=== PATIENT | female | born 2000 | race African-American/Black ===

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

== ENCOUNTER 2018-02-01 22:19 | Emergency (ER) | payer MEDICAID, OTHER ==
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
[2018-02-02 00:43] VITALS: BP 111/74
--- NOTE | 2018-02-02 08:27 | RAD ---
Indication: RIGHT shoulder pain post fall posterior lateral aspect humeral head region. Comparison: No relevant prior exams available on the [facility] for comparison. Technique: 4 views RIGHT shoulder Report: Normal acromioclavicular and glenohumeral joint alignment. No cortical disruption or suspicious trabecular irregularity to suggest fracture. Unremarkable soft tissue contours. IMPRESSION: Negative radiographic exam of the RIGHT shoulder.
== END 2018-02-02 00:42 | disposition home or self-care (01) ==
LOC: ED 22:19
DX: M25.511 Pain in right shoulder (principal)
CPT/HCPCS: 36415; 84702; 99281

== ENCOUNTER 2018-02-12 12:21 | Emergency (ER) | payer OTHER ==
[2018-02-12 12:48] VITALS: BP 131/79
[2018-02-12] MEDS ORDERED: diPHENhydraMINE PO* 25 MG PO ONE (13:03)
[2018-02-12] MEDS ORDERED: Naproxen TAB* 250 MG PO ONE (13:03)
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
== END 2018-02-12 13:22 | disposition home or self-care (01) ==
LOC: ED 12:21
DX: S00.83XA Contusion of other part of head, initial encounter (principal); S02.5XXA Fracture of tooth (traumatic), initial encounter for closed fracture; Y04.2XXA Assault by strike against or bumped into by another person, initial encounter; Y92.9 Unspecified place or not applicable; E05.90 Thyrotoxicosis, unspecified without thyrotoxic crisis or storm; I10 Essential (primary) hypertension; F17.210 Nicotine dependence, cigarettes, uncomplicated
CPT/HCPCS: 99282; A9270-GY

== ENCOUNTER 2018-03-04 12:31 | Emergency (ER) | payer OTHER ==
[2018-03-04 13:52] VITALS: BP 122/87
--- NOTE | 2018-03-04 14:21 | UC ---
Neck Pain HPI - HPI Summary HPI Summary: 3 WEEKS OF PAINFUL RIGHT NECK MASS THAT IS GETTING PROGRESSIVELY LARGER. SHE HAS A HARD TIME TURNING HER HEAD DUE TO THE PAIN. SHE HAS A SORE THROAT AND PAIN WITH SWALLOWING BUT DENIES ANY FEVER. NO URI SYMPTOMS. NO TRISMUS. NO RECENT WEIGHT LOSS BUT SHE DOES REPORT SOME NIGHT SWEATS OVER THE PAST FEW WEEKS. - History of Current Complaint Chief Complaint: UCRespiratory Stated Complaint: SORE THROAT SWOLLEN GLANDS Time Seen by Provider: 03/04/18 13:47 Hx Obtained From: Patient Hx Last Menstrual Period: current Mechanism Of Injury: No Known Trauma Timing: Constant Onset/Duration: Gradual Onset, Lasting Weeks, Still Present Severity: Moderate Pain Intensity: 8 Pain Scale Used: 0-10 Numeric Location: Discrete At: - RIGHT, Radiates To: - HEAD Aggravating Factors: Movement Alleviating Factors: Nothing Associated Signs & Symptoms: Positive: Swelling. Negative: Fever - Allergies/Home Medications Allergies/Adverse Reactions: Allergies Allergy/AdvReac Type Severity Reaction Status Date / Time No Known Allergies Allergy Verified 03/04/18 13:52 Home Medications: Home Medications QUEtiapine TAB* [Seroquel TAB*] 50 mg PO BEDTIME 03/04/18 [History Confirmed ] PMH/Surg Hx/FS Hx/Imm Hx - Additional Past Medical History Additional PMH: SLEEP DIFFICULTY ON SEROQUEL Endocrine History: Hypothyroidism - NO MEDS Cardiovascular History: Hypertension - NO MEDS Respiratory History: Asthma - Surgical History Surgical History: None Surgery Procedure, Year, and Place: n/a - Family History Known Family History: Positive: None - reviewed & noncontributory, Cardiac Disease, Hypertension, Other - Bipolar d/o, anxiety, ETOH abuse, ectopic pregnancies/miscarriages; Negative: Diabetes Family History: TWIN SISTER HAS LIVER DZ - Social History Alcohol Use: None Substance Use Type: None Substance Use Comment - Amount & Last Used: occassional 1 month Smoking Status (MU): Light Every Day Tobacco Smoker Type: Cigarettes Amount Used/How Often: 1 sigs per day Length of Time of Smoking/Using Tobacco: one year Have You Smoked in the Last Year: Yes - Immunization History Most Recent Influenza Vaccination: dec 2016 Most Recent Pneumonia Vaccination: n/a Review Of Systems Constitutional: Positive: Negative ENT: Positive: Sore Throat, Ear Ache Respiratory: Positive: Negative Cardiovascular: Positive: Negative Gastrointestinal: Positive: Negative Musculoskeletal: Positive: Decreased ROM - NECK, Other: - RIGHT NECK MASS All Other Systems Reviewed And Are Negative: Yes Physical Exam Triage Information Reviewed: Yes Appearance: Well-Appearing, No Pain Distress, Well-Nourished Vital Signs: Initial Vital Signs Temp 98.6 F 03/04/18 13:47 Pulse 91 03/04/18 13:47 Resp 16 03/04/18 13:47 BP 122/87 03/04/18 13:47 Pulse Ox 99 03/04/18 13:47 Vital Signs Reviewed: Yes Eyes: Positive: Conjunctiva Clear ENT: Positive: Hearing grossly normal, Pharynx normal, TMs normal, Uvula midline. Negative: Tonsillar swelling, Tonsillar exudate, Trismus, Muffled voice Neck: Positive: Supple, Tenderness @ - RIGHT NECK, Other: - TENDER, FIRM RIGHT SIDED NECK MASS IN AREA OF TONSILLAR LYMPH NODE. SWELLING OBSCURES ANGLE OF MANDIBLE Respiratory Exam: Normal Cardiovascular Exam: Normal Abdomen Description: Positive: Soft Musculoskeletal: Positive: No Edema Neurological: Positive: Alert Psychological: Positive: Age Appropriate Behavior Skin: Negative: rashes Diagnostics - Radiology CT SOFT TISSUE NECK Xray Interpretation: Positive (See Comments) - RIGHT UPPER CERVICAL LYMPHADENOPATHY Radiology Interpretation Completed By: Radiologist Neck Pain Course/Dx - Differential Dx/Diagnosis Provider Diagnoses: RIGHT UPPER CERVICAL LYMPHADENOPATHY Discharge - Sign-Out/Discharge Documenting (check all that apply): Discharge/Admit/Transfer - Discharge Plan Condition: Stable Disposition: HOME Patient Education Materials: Lymphadenopathy (ED) Referrals: Fuad Mccray MD [Primary Care Provider] - If Needed Nabil Gan MD [Medical Doctor] - 2 Days Additional Instructions: CT SCAN TODAY SHOWS RIGHT UPPER CERVICAL LYMPHADENOPATHY. THIS NEEDS TO BE FURTHER EVALUATED MOST LIKELY WITH A BIOPSY BY GENERAL SURGERY. CALL DR. GAN' S OFFICE TODAY TO SCHEDULE AN APPOINTMENT. WE HAVE ALSO CHECKED A BLOOD COUNT TODAY. GO TO THE [facility] ED WITHOUT FAIL IF YOU DEVELOP FEVER, ANY RESPIRATORY INVOLVEMENT/ OBSTRUCTION OF THE AIRWAY OR ANY OTHER CONCERNING SYMPTOMS. - Billing Disposition and Condition Condition: STABLE Disposition: HOME
--- NOTE | 2018-03-04 14:39 | RAD ---
HISTORY: Right neck mass COMPARISONS: Facial CT dated July 20, 2012 TECHNIQUE: Multiple contiguous axial CT scans were obtained of the neck without intravenous contrast, with coronal and sagittal multiplanar reformations. FINDINGS: BRAIN AND ORBITS: The visualized brain and orbits are normal. PARANASAL SINUSES: There is a mucous retention cyst versus polypoid mucosal thickening of the left maxillary sinus. SALIVARY GLANDS: The parotid glands, submandibular glands, sublingual glands are normal. NASAL CAVITY/NASOPHARYNX: The nasal cavity and nasopharynx are normal. ORAL CAVITY/OROPHARYNX: The oral cavity is obscured by streak artifact from dental amalgam. The visualized oral cavity and oropharynx are unremarkable. LARYNGEAL APPARATUS/HYPOPHARYNX: The laryngeal apparatus and hypopharynx are normal. UPPER AIRWAY/UPPER ESOPHAGUS: The visualized upper airway and esophagus are normal. LUNG APICES: The lung apices are clear. THYROID GLAND: The thyroid gland is normal. LYMPH NODES: There is an enlarged right level 2 lymph node measuring 1.8 cm in short axis. There are smaller level 2 and level 3 lymph nodes noted on the right. VASCULATURE: The vasculature is unremarkable. BONES AND SOFT TISSUES: No bone or soft tissue abnormalities are noted. OTHER: None. IMPRESSION: RIGHT UPPER CERVICAL LYMPHADENOPATHY. RECOMMEND ATTENTION ON FOLLOW-UP EXAMINATION OR CONSIDERATION OF TISSUE SAMPLING.
[2018-03-04 19:21] LABS: Hematocrit 37 % (35-47); Hemoglobin 12.1 g/dl (12.0-16.0); Mean Corpuscular HGB Conc 33 g/dl (31-36); Mean Corpuscular Hemoglobin 28 pg (27-31); Mean Corpuscular Volume 84 fL (80-97); Mean Platelet Volume 11.3 um3 (7.4-10.4); Platelet Count 215 10^3/ul (150-450); Red Blood Count 4.35 10^6/ul (4.0-5.4); Red Cell Distribution Width 15 % (10.5-15)
[2018-03-04 20:37] LABS: ABS Basophils 0.1 10^3/ul (0-0.2); ABS Eosinophils 0.1 10^3/ul (0-0.6); ABS Lymphocytes 2.3 10^3/ul (1.0-4.8); ABS Monocytes 0.4 10^3/ul (0-0.8); ABS Neutrophils 4.1 10^3/ul (1.5-7.7); ABS Nucleated RBC 0 10^3/ul; Eosinophil % 1.6 % (0-6); Lymphocyte % 32.3 % (25-47); Nucleated Red Blood Cells % 0.1
== END 2018-03-04 15:05 | disposition home or self-care (01) ==
LOC: UCEAST 12:31
DX: R59.0 Localized enlarged lymph nodes (principal); F17.210 Nicotine dependence, cigarettes, uncomplicated
CPT/HCPCS: 36415; 70490; 85025; 99211; G0463

== ENCOUNTER 2018-04-07 13:35 | Emergency (ER) | payer SELFPAY ==
[2018-04-07] MEDS ORDERED: Cyclobenzaprine TAB* 10 MG PO ONE (15:10)
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
[2018-04-07] MEDS ORDERED: Ibuprofen TAB* 600 MG PO ONE (16:53)
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
[2018-04-07 17:13] VITALS: BP 133/61
== END 2018-04-07 17:11 | disposition home or self-care (01) ==
LOC: ED 13:35
DX: M54.5 Low back pain (principal); V43.52XA Car driver injured in collision with other type car in traffic accident, initial encounter; Y92.410 Unspecified street and highway as the place of occurrence of the external cause; F17.210 Nicotine dependence, cigarettes, uncomplicated
CPT/HCPCS: 36415; 72070; 72100; 84702; 99282; A9270-GY

== ENCOUNTER 2018-04-12 15:22 | Emergency (ER) | payer OTHER ==
[2018-04-12] MEDS ORDERED: NS 0.9% 1000 ML* 1,000 ML IV ONE (16:49)
[2018-04-12] MEDS ORDERED: Morphine VIAL* 4 MG/ML VIAL (1 ml vial) IV ONE (16:49)
[2018-04-12] MEDS ORDERED: PROCHLORPERAZINE INJ 5 MG/ML 2 ML VIAL IV ONE (16:49)
[2018-04-12 17:53] LABS: ABS Basophils 0 10^3/ul (0-0.2); ABS Eosinophils 0.2 10^3/ul (0-0.6); ABS Lymphocytes 1.6 10^3/ul (1.0-4.8); ABS Monocytes 0.4 10^3/ul (0-0.8); ABS Neutrophils 4.3 10^3/ul (1.5-7.7); ABS Nucleated RBC 0 10^3/ul; Eosinophil % 2.4 % (0-6); Hematocrit 34 % (35-47); Hemoglobin 11.4 g/dl (12.0-16.0); Lymphocyte % 24.8 % (25-47); Mean Corpuscular HGB Conc 33 g/dl (31-36); Mean Corpuscular Hemoglobin 28 pg (27-31); Mean Corpuscular Volume 84 fL (80-97); Mean Platelet Volume 10.1 um3 (7.4-10.4); Nucleated Red Blood Cells % 0; Platelet Count 167 10^3/ul (150-450); Red Cell Distribution Width 16 % (10.5-15); White Blood Count 6.5 10^3/ul (3.5-10.8)
[2018-04-12 17:56] LABS: Urine Appearance Clear; Urine Blood 2+ (Negative); Urine Color Yellow; Urine Ketones 1+ (Negative); Urine Protein Negative (Negative); Urine Urobilinogen Negative (Negative)
[2018-04-12 18:11] LABS: EGFR Non-African American 110.3 (>60)
[2018-04-12 18:20] LABS: INR 1.13 (0.77-1.02)
--- NOTE | 2018-04-12 19:16 | RAD ---
INDICATION: Left pelvic pain and vaginal bleeding COMPARISON: Multiple previous ultrasounds, most recently dated December 12, 2017 TECHNIQUE: Real-time transabdominal and transvaginal ultrasound examination of the female pelvis including grayscale and Doppler color flow imaging. FINDINGS: Uterus: The uterus is normal in size and echogenicity measuring 8.7 x 3.1 x 3.8 cm. The endometrial stripe is smooth and uniform measuring 8 mm in thickness. Bilaterally the fallopian tubes appeared to be dilated measuring up to 1.2 cm on the right and 0.9 cm the left. There is echogenic material within the fallopian tubes with vascularity. Ovaries: The right and left ovary measure 4 x 2.8 x 3.0 cm and 3.2 x 2.0 x 1.6 cm, respectively. Normal arterial and venous waveforms are identified. At the right ovary there is an irregular and mostly anechoic structure measuring 2.5 cm in greatest dimension most consistent with an involuting follicle. There is moderate amount of free fluid in the cul-de-sac. IMPRESSION: Bilaterally the fallopian tubes appear to be dilated and filled with echogenic material. Correlate to clinical presentation of hemato- or pyosalpinx.
--- NOTE | 2018-04-12 19:40 | ED ---
Abdominal Pain/Female - HPI Summary HPI Summary: Complains of bilateral lower abdominal pain, vaginal pain, blood clots starting today. Vomiting 1. Denies fever, cough, sore throat, CP, SOB, N/D, change in urine or BM. Medical history is anxiety, PTSD, asthma. LMP 04/10. Sexually active with unprotected sex. . History of 3 miscarriages including one ectopic. - History of Current Complaint Chief Complaint: EDFlankPain Stated Complaint: BACK/FLANK PAIN Time Seen by Provider: 04/12/18 15:35 Hx Obtained From: Patient Hx Last Menstrual Period: current Pain Intensity: 8 Allergies/Adverse Reactions: Allergies Allergy/AdvReac Type Severity Reaction Status Date / Time No Known Allergies Allergy Verified 04/12/18 15:24 PMH/Surg Hx/FS Hx/Imm Hx Endocrine/Hematology History: Reports: Hx Thyroid Disease - hypothyroid Denies: Hx Blood Disorders, Hx Diabetes Cardiovascular History: Reports: Hx Hypertension Respiratory History: Reports: Hx Asthma Denies: Hx Chronic Obstructive Pulmonary Disease (COPD) GI History: Reports: Hx Gall Bladder Disease - h/o stones as a child Denies: Hx Ulcer History: Denies: Hx Kidney Infection, Hx Kidney Stones Sensory History: Reports: Hx Contacts or Glasses - Pt reported use in the ED, unable to confirm upon admission. Denies: Hx Hearing Aid Opthamlomology History: Reports: Hx Contacts or Glasses - Pt reported use in the ED, unable to confirm upon admission. Neurological History: Reports: Hx Headaches, Hx Migraine Psychiatric History: Reports: Hx Anxiety, Hx Attention Deficit Hyperactivity Disorder, Hx Panic Disorder, Hx Inpatient Treatment, Hx Community Mental Health Tx, Hx Bipolar Disorder, Hx Suicide Attempt, Hx of Violent Episodes Against Others, Other Psychiatric Issues/Disorders - SIB cutting Denies: Hx Eating Disorder, Hx Depression, Hx Post Traumatic Stress Disorder , Hx Schizophrenia, Hx Substance Abuse - Surgical History Surgery Procedure, Year, and Place: n/a - Immunization History Date of Tetanus Vaccine: up to date Infectious Disease History: No Infectious Disease History: Denies: Hx Clostridium Difficile, Hx Hepatitis, Hx Human Immunodeficiency Virus (HIV), Hx of Known/Suspected MRSA, Hx Shingles, Hx Tuberculosis, Hx Known/ Suspected VRE, Hx Known/Suspected VRSA, History Other Infectious Disease, Traveled Outside the [place] in Last 30 Days - Family History Known Family History: Positive: None - reviewed & noncontributory, Cardiac Disease, Hypertension, Other - Bipolar d/o, anxiety, ETOH abuse, ectopic pregnancies/miscarriages; Negative: Diabetes Family History: TWIN SISTER HAS LIVER DZ - Social History Alcohol Use: None Hx Substance Use: Yes Substance Use Type: Reports: None Substance Use Comment - Amount & Last Used: occassional 1 month Hx Tobacco Use: Yes Smoking Status (MU): Light Every Day Tobacco Smoker Type: Cigarettes Amount Used/How Often: 1 sigs per day Length of Time of Smoking/Using Tobacco: one year Have You Smoked in the Last Year: Yes Review of Systems Constitutional: Negative Eyes: Negative ENT: Negative Cardiovascular: Negative Respiratory: Negative Positive: Abdominal Pain, Vomiting Genitourinary: Negative Musculoskeletal: Negative Neurological: Negative Psychological: Normal All Other Systems Reviewed And Are Negative: Yes Physical Exam - Summary Physical Exam Summary: Tender to palpation lower abdomen bilaterally. And suprapubically Triage Information Reviewed: Yes Vital Signs On Initial Exam: Initial Vitals Temp Pulse Resp BP Pulse Ox 97.8 F 82 18 129/85 100 04/12/18 15:24 04/12/18 15:24 04/12/18 15:24 04/12/18 15:24 04/12/18 15:24 Vital Signs Reviewed: Yes Appearance: Positive: Well-Appearing Skin: Positive: Warm Head/Face: Positive: Normal Head/Face Inspection Eyes: Positive: Normal Neck: Positive: Supple Respiratory/Lung Sounds: Positive: Clear to Auscultation Cardiovascular: Positive: Normal Musculoskeletal: Positive: Normal Neurological: Positive: Normal Psychiatric: Positive: Normal AVPU Assessment: Alert - [place] Coma Scale Best Eye Response: 4 - Spontaneous Best Motor Response: 6 - Obeys Commands Best Verbal Response: 5 - Oriented Coma Scale Total: 15 Diagnostics - Vital Signs Vital Signs Temp Pulse Resp BP Pulse Ox 04/12/18 17:50 116/67 04/12/18 17:31 16 04/12/18 15:24 97.8 F 82 18 129/85 100 - Laboratory Lab Results: Lab Results 04/12/18 04/12/18 04/12/18 Range/Units 17:42 17:42 17:42 WBC 6.5 (3.5-10.8) 10^3/ul RBC 4.10 (4.0-5.4) 10^6/ul Hgb 11.4 L (12.0-16.0) g/dl Hct 34 L (35-47) % MCV 84 (80-97) fL MCH 28 (27-31) pg MCHC 33 (31-36) g/dl RDW 16 H (10.5-15) % Plt Count 167 (150-450) 10^3/ul MPV 10.1 (7.4-10.4) um3 Neut % (Auto) 65.9 (38-83) % Lymph % (Auto) 24.8 L (25-47) % [place] % (Auto) 6.5 (0-7) % Eos % (Auto) 2.4 (0-6) % Baso % (Auto) 0.4 (0-2) % Absolute Neuts (auto) 4.3 (1.5-7.7) 10^3/ul Absolute Lymphs (auto) 1.6 (1.0-4.8) 10^3/ul Absolute Monos (auto) 0.4 (0-0.8) 10^3/ul Absolute Eos (auto) 0.2 (0-0.6) 10^3/ul Absolute Basos (auto) 0 (0-0.2) 10^3/ul Absolute Nucleated RBC 0 10^3/ul Nucleated RBC % 0 INR (Anticoag Therapy) (0.77-1.02) APTT (26.0-36.3) seconds Sodium 135 L (139-145) mmol/L Potassium 3.2 L (3.5-5.0) mmol/L Chloride 104 (101-111) mmol/L Carbon Dioxide 24 (22-32) mmol/L Anion Gap 7 (2-11) mmol/L BUN 11 (6-24) mg/dL Creatinine 0.68 (0.51-0.95) mg/dL Est GFR ( Amer) 141.9 (>60) Est GFR (Non-Af Amer) 110.3 (>60) BUN/Creatinine Ratio 16.2 (8-20) Glucose 83 (70-100) mg/dL Lactic Acid (0.5-2.0) mmol/L Calcium 9.0 (8.6-10.3) mg/dL Total Bilirubin 0.60 (0.2-1.0) mg/dL AST 13 (13-39) U/L ALT 8 (7-52) U/L Alkaline Phosphatase 50 (34-104) U/L C-Reactive Protein 33.13 H (< 5.00) mg/L Total Protein 6.7 (6.4-8.9) g/dL Albumin 4.0 (3.2-5.2) g/dL Globulin 2.7 (2-4) g/dL Albumin/Globulin Ratio 1.5 (1-3) Lipase 17 (11.0-82.0) U/L Beta HCG, Quant < 0.60 mIU/mL Urine Color Yellow Urine Appearance Clear Urine pH 6.0 (5-9) Ur Specific [place] 1.010 (1.010-1.030) Urine Protein Negative (Negative) Urine Ketones 1+ A (Negative) Urine Blood 2+ A (Negative) Urine Nitrate Negative (Negative) Urine Bilirubin Negative (Negative) Urine Urobilinogen Negative (Negative) Ur Leukocyte Esterase Trace A (Negative) Urine WBC (Auto) 1+(6-10/hpf) A (Absent) Urine RBC (Auto) 1+(3-5/hpf) A (Absent) Urine Bacteria Absent (Absent) Urine Glucose Negative (Negative) 04/12/18 04/12/18 Range/Units 17:42 17:42 WBC (3.5-10.8) 10^3/ul RBC (4.0-5.4) 10^6/ul Hgb (12.0-16.0) g/dl Hct (35-47) % MCV (80-97) fL MCH (27-31) pg MCHC (31-36) g/dl RDW (10.5-15) % Plt Count (150-450) 10^3/ul MPV (7.4-10.4) um3 Neut % (Auto) (38-83) % Lymph % (Auto) (25-47) % [place] % (Auto) (0-7) % Eos % (Auto) (0-6) % Baso % (Auto) (0-2) % Absolute Neuts (auto) (1.5-7.7) 10^3/ul Absolute Lymphs (auto) (1.0-4.8) 10^3/ul Absolute Monos (auto) (0-0.8) 10^3/ul Absolute Eos (auto) (0-0.6) 10^3/ul Absolute Basos (auto) (0-0.2) 10^3/ul Absolute Nucleated RBC 10^3/ul Nucleated RBC % INR (Anticoag Therapy) 1.13 H (0.77-1.02) APTT 30.2 (26.0-36.3) seconds Sodium (139-145) mmol/L Potassium (3.5-5.0) mmol/L Chloride (101-111) mmol/L Carbon Dioxide (22-32) mmol/L Anion Gap (2-11) mmol/L BUN (6-24) mg/dL Creatinine (0.51-0.95) mg/dL Est GFR ( Amer) (>60) Est GFR (Non-Af Amer) (>60) BUN/Creatinine Ratio (8-20) Glucose (70-100) mg/dL Lactic Acid 1.0 (0.5-2.0) mmol/L Calcium (8.6-10.3) mg/dL Total Bilirubin (0.2-1.0) mg/dL AST (13-39) U/L ALT (7-52) U/L Alkaline Phosphatase (34-104) U/L C-Reactive Protein (< 5.00) mg/L Total Protein (6.4-8.9) g/dL Albumin (3.2-5.2) g/dL Globulin (2-4) g/dL Albumin/Globulin Ratio (1-3) Lipase (11.0-82.0) U/L Beta HCG, Quant mIU/mL Urine Color Urine Appearance Urine pH (5-9) Ur Specific [place] (1.010-1.030) Urine Protein (Negative) Urine Ketones (Negative) Urine Blood (Negative) Urine Nitrate (Negative) Urine Bilirubin (Negative) Urine Urobilinogen (Negative) Ur Leukocyte Esterase (Negative) Urine WBC (Auto) (Absent) Urine RBC (Auto) (Absent) Urine Bacteria (Absent) Urine Glucose (Negative) Result Diagrams: 04/12/18 17:42 04/12/18 17:42 Lab Statement: Any lab studies that have been ordered have been reviewed, and results considered in the medical decision making process. - Ultrasound No standard instances Ultrasound Interpretation: Positive (See Comments) - Bilaterally dilated fallopian tubes filled with echogenic material consistent with either bilateral hydrosalpinx or pyosalpinx. Ultrasound Interpretation Completed By: Radiologist Abdominal Pain Fem Course/Dx - Course Course Of Treatment: Complains of bilateral lower abdominal pain, vaginal pain, blood clots starting today. Vomiting 1. Denies fever, cough, sore throat, CP , SOB, N/D, change in urine or BM. Medical history is anxiety, PTSD, asthma. LMP 04/10. Sexually active with unprotected sex. . History of 3 miscarriages including one ectopic. Tender to palpation lower abdomen bilaterally. And suprapubically. Patient chose to defer pelvic exam until she follows up with [facility] on Saturday. 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 Dr. Tam recommended discharge home with by mouth antibiotics and follow up with [facility] clinic, as pt had unremarkable white count, lack of bacteria in urine, lack of fever. Vital signs within normal limits. Patient non. Unremarkable labs unremarkable except for mildly elevated CRP. Rocephin 250 mg IM, Doxy 100mg and Flagyl 500 here in the ED. Rx for Doxy and Flagyl. patient has follow-up with [facility] appointment on Saturday - Diagnoses Provider Diagnoses: Lower abdominal pain Discharge - Sign-Out/Discharge Documenting (check all that apply): Discharge/Admit/Transfer - Discharge Plan Condition: Stable Disposition: HOME Prescriptions: DOXYcycline CAP(*) [DOXYcycline 100MG CAP(*)] 100 mg PO BID 10 Days #20 cap metroNIDAZOLE [Flagyl] 500 mg PO BID 7 Days #14 tablet Patient Education Materials: Acute Abdominal Pain (ED) Referrals: Fuad Mccray MD [Primary Care Provider] - Additional Instructions: Follow-up at her already scheduled [facility] appointment on Saturday. Take antibiotics as directed. Return to the ED for any new or worsening symptoms - Billing Disposition and Condition Condition: STABLE Disposition: HOME
[2018-04-12] MEDS ORDERED: cefTRIAXone VIAL(*) 250 MG VIAL IM ONE (19:57)
[2018-04-12] MEDS ORDERED: metroNIDAZOLE TAB* 250 MG PO ONE (19:58)
[2018-04-12] MEDS ORDERED: DOXYcycline CAP(*) 100 MG PO ONE (19:58)
[2018-04-12] MEDS ORDERED: Lidocaine 1%* 5 ML VIAL ONE (20:13)
[2018-04-12] MEDS ORDERED: Lidocaine 1%* 5 ML VIAL INJ ONE (20:23)
[2018-04-12 20:34] VITALS: BP 117/91
== END 2018-04-12 20:33 | disposition home or self-care (01) ==
LOC: ED 15:22
DX: R10.30 Lower abdominal pain, unspecified (principal); E03.9 Hypothyroidism, unspecified; I10 Essential (primary) hypertension; F90.9 Attention-deficit hyperactivity disorder, unspecified type; F31.9 Bipolar disorder, unspecified; F17.210 Nicotine dependence, cigarettes, uncomplicated; F41.9 Anxiety disorder, unspecified; F43.10 Post-traumatic stress disorder, unspecified
CPT/HCPCS: 36415; 76830; 80053; 81003; 81015; 83605; 83690; 84702; 85025; 85610; 85730; 86140; 87086; 96360; 96372; 96374; 96375; 99282; A9270-GY; J0696; J0780; J2270

== ENCOUNTER 2018-05-20 07:40 | Emergency (ER) | payer MEDICAID ==
--- NOTE | 2018-05-20 08:20 | ED ---
Psychiatric Complaint - HPI Summary HPI Summary: This pt is a 18 y/o female presenting to [facility] c/o anxiety since this morning. Pt reports she feels overwhelmed. Pt notes she has had anxiety her whole life and used to take Xanax. Her prescriptions were written by Dr. Sotelo and Dr. Mccray. Pt states she has not followed up with them since she was 12 y/o. She presents to the ED bcause she states she is having a lot of anxiety and wants "tips to cope and deal with this." Denies SI or HI thoughts/plan. Pt has an upcoming appointment with the [facility]. She is supposed to start school in 1 week at [employer]. Denies recreational use of opiates. She states she only takes them "when doctors prescribe them and with prescriptions." Pt notes "my family are pill poppers." - History Of Current Complaint Chief Complaint: EDMentalHealth Time Seen by Provider: 05/20/18 08:17 Hx Obtained From: Patient Hx Last Menstrual Period: current Onset/Duration: Lasting Hours, Still Present Timing: Hours Severity Currently: Severe Character: Anxious Aggravating Factor(s): Recent Stress Alleviating Factor(s): Nothing Related History: Positive For: Prior Psychiatric Issues - anxiety Has Suicidal: Denies: Thoughts, With A Plan Has Homicidal: Denies: Thoughts, With A Plan - Allergies/Home Medications Allergies/Adverse Reactions: Allergies Allergy/AdvReac Type Severity Reaction Status Date / Time No Known Allergies Allergy Verified 05/20/18 07:43 Home Medications: Home Medications NK [No Home Medications Reported] 05/20/18 [History Confirmed 05/20/18] PMH/Surg Hx/FS Hx/Imm Hx Endocrine/Hematology History: Reports: Hx Thyroid Disease - hypothyroid Denies: Hx Blood Disorders, Hx Diabetes Cardiovascular History: Reports: Hx Hypertension Respiratory History: Reports: Hx Asthma Denies: Hx Chronic Obstructive Pulmonary Disease (COPD) GI History: Reports: Hx Gall Bladder Disease - h/o stones as a child Denies: Hx Ulcer History: Denies: Hx Kidney Infection, Hx Kidney Stones Sensory History: Reports: Hx Contacts or Glasses - Pt reported use in the ED, unable to confirm upon admission. Denies: Hx Hearing Aid Opthamlomology History: Reports: Hx Contacts or Glasses - Pt reported use in the ED, unable to confirm upon admission. Neurological History: Reports: Hx Headaches, Hx Migraine Psychiatric History: Reports: Hx Anxiety, Hx Attention Deficit Hyperactivity Disorder, Hx Panic Disorder, Hx Inpatient Treatment, Hx Community Mental Health Tx, Hx Bipolar Disorder, Hx Suicide Attempt, Hx of Violent Episodes Against Others, Other Psychiatric Issues/Disorders - SIB cutting Denies: Hx Eating Disorder, Hx Depression, Hx Post Traumatic Stress Disorder , Hx Schizophrenia, Hx Substance Abuse - Surgical History Surgery Procedure, Year, and Place: n/a - Immunization History Date of Tetanus Vaccine: up to date Infectious Disease History: No Infectious Disease History: Denies: Hx Clostridium Difficile, Hx Hepatitis, Hx Human Immunodeficiency Virus (HIV), Hx of Known/Suspected MRSA, Hx Shingles, Hx Tuberculosis, Hx Known/ Suspected VRE, Hx Known/Suspected VRSA, History Other Infectious Disease, Traveled Outside the [place] in Last 30 Days - Family History Known Family History: Positive: Cardiac Disease, Hypertension, Other - Bipolar d /o, anxiety, ETOH abuse, ectopic pregnancies/miscarriages; Negative: Diabetes Family History: TWIN SISTER HAS LIVER DZ - Social History Alcohol Use: None Hx Substance Use: Yes Substance Use Type: Reports: None Substance Use Comment - Amount & Last Used: occassional 1 month Hx Tobacco Use: Yes Smoking Status (MU): Light Every Day Tobacco Smoker Type: Cigarettes Amount Used/How Often: 1 sigs per day Length of Time of Smoking/Using Tobacco: one year Have You Smoked in the Last Year: Yes Review of Systems Negative: Fever, Chills Eyes: Negative ENT: Negative Cardiovascular: Negative Respiratory: Negative Gastrointestinal: Negative Positive: Anxious. Negative: Other - SI or HI thoughts/plan All Other Systems Reviewed And Are Negative: Yes Physical Exam - Summary Physical Exam Summary: Appearance: The patient is well-nourished in no acute distress and in no acute pain. Skin: The skin is warm and dry and skin color reflects adequate perfusion. HEENT: The head is normocephalic and atraumatic. The pupils are equal and reactive. The conjunctivae are clear and without drainage. Nares are patent and without drainage. Mouth reveals moist mucous membranes and the throat is without erythema and exudate. The external ears are intact. The ear canals are patent and without drainage. The tympanic membranes are intact. Neck: the neck is supple with full range of motion and non-tender. There are no carotid bruits. There is no neck vein distension. Respiratory: Chest is non-tender. Lungs are clear to auscultation and breath sounds are symmetrical and equal. Cardiovascular: Heart is regular rate and rhythm. There is no murmur or rub auscultated. There is no peripheral edema and pulses are symmetrical and equal. Abdomen: The abdomen is soft and non-tender. There are normal bowel sounds heard in all four quadrants and there is no organomegaly palpated. Musculoskeletal: There is no back tenderness noted. Extremities are non-tender with full range of motion. There is good capillary refill. There is no peripheral edema or calf tenderness elicited. Neurological: Patient is alert and oriented to person, place and time. Psychiatric: The patient exhibits anxiety. Triage Information Reviewed: Yes Vital Signs On Initial Exam: Initial Vitals Temp Pulse Resp BP Pulse Ox 98.7 F 113 17 135/86 100 05/20/18 07:40 05/20/18 07:40 05/20/18 07:40 05/20/18 07:40 05/20/18 07:40 Vital Signs Reviewed: Yes Diagnostics - Vital Signs Vital Signs Temp Pulse Resp BP Pulse Ox 05/20/18 07:40 98.7 F 113 17 135/86 100 - Laboratory Lab Statement: Any lab studies that have been ordered have been reviewed, and results considered in the medical decision making process. Course/Dx - Course Course Of Treatment: Ms. Romero presented to the emergency department stating that she has had anxiety most of her life and has been on and off medications. She prefers not to be on any medications but has been using marijuana to self medicate. She recently stopped that as she does not want to be on any medication. She set up an appointment with [facility] the with a provider that is not a psychiatrist or psychologist. She came in today looking for coping mechanisms because her anxiety has worsened in the 2 weeks and she stopped marijuana. She expressly denied any SI or HI or need for mental health evaluation. The best we could offer her was a list of follow-up resources. - Differential Dx/Clinical Impression Provider Diagnosis: Anxiety Discharge - Sign-Out/Discharge Documenting (check all that apply): Discharge/Admit/Transfer - Discharge - Discharge Plan Condition: Stable Disposition: HOME Patient Education Materials: Anxiety (ED) Referrals: Fuad Mccray MD [Primary Care Provider] - Additional Instructions: Please follow up with the list provided to you. RETURN TO THE ED FOR ANY WORSENING SYMPTOMS. - Billing Disposition and Condition Condition: STABLE Disposition: Home
[2018-05-20 10:02] VITALS: BP 140/96
== END 2018-05-20 10:01 | disposition home or self-care (01) ==
LOC: ED 07:40
DX: F41.9 Anxiety disorder, unspecified (principal); E03.9 Hypothyroidism, unspecified; I10 Essential (primary) hypertension; J45.909 Unspecified asthma, uncomplicated; Z82.49 Family history of ischemic heart disease and other diseases of the circulatory system; Z81.8 Family history of other mental and behavioral disorders; Z81.1 Family history of alcohol abuse and dependence; Z83.79 Family history of other diseases of the digestive system; F17.210 Nicotine dependence, cigarettes, uncomplicated
CPT/HCPCS: 99282

== ENCOUNTER 2018-10-15 12:37 | Emergency (ER) | payer OTHER ==
[2018-10-15] MEDS ORDERED: Albuterol (2.5 MG) 0.5 % CONC 2.5 MG/0.5 ML NEB.SOLN (ICU and ED only) INH ONE (12:54)
--- NOTE | 2018-10-15 13:03 | ED ---
Respiratory - HPI Summary HPI Summary: 18 year old female with history of anxiety and asthma presents with 3 day history of chest pain and difficulty breathing. States feels "like I cannot get a full breath". Describes pain as "tightness". States she occasionally feels a "thumping" in her chest. Associated with some chills but no known fever. States she uses her albuterol inhaler 2-3 times day. Last night needed to do a nebulizer treatment as the inhaler did not help. Has not used inhaler or nebulizer today and states she is almost out of her nebulizer solution. Denies nasal congestion, sinus pain/pressure, sore throat, dizziness, weakness, diaphoresis, abdominal pain, nausea, or vomiting. - History of Current Complaint Chief Complaint: EDGeneral Stated Complaint: COUGH/CHILLS/ACHES Time Seen by Provider: 10/15/18 12:45 Hx Obtained From: Patient Onset/Duration: Gradual Onset, Lasting Days Current Severity: Moderate Pain Intensity: 8 Character: Dyspnea at Rest Sputum Amount: None Aggravating Factor(s): Nothing Alleviating Factor(s): MDI (Frequency Of Use) - 2-3 times a day - Allergy/Home Medications Allergies/Adverse Reactions: Allergies Allergy/AdvReac Type Severity Reaction Status Date / Time No Known Allergies Allergy Verified 10/15/18 12:45 PMH/Surg Hx/FS Hx/Imm Hx Previously Healthy: Yes Endocrine/Hematology History: Reports: Hx Thyroid Disease - hypothyroid Denies: Hx Blood Disorders, Hx Diabetes Cardiovascular History: Reports: Hx Hypertension Respiratory History: Reports: Hx Asthma Denies: Hx Chronic Obstructive Pulmonary Disease (COPD) GI History: Reports: Hx Gall Bladder Disease - h/o stones as a child Denies: Hx Ulcer History: Denies: Hx Kidney Infection, Hx Kidney Stones Sensory History: Reports: Hx Contacts or Glasses - Pt reported use in the ED, unable to confirm upon admission. Denies: Hx Hearing Aid Opthamlomology History: Reports: Hx Contacts or Glasses - Pt reported use in the ED, unable to confirm upon admission. Neurological History: Reports: Hx Headaches, Hx Migraine Psychiatric History: Reports: Hx Anxiety, Hx Attention Deficit Hyperactivity Disorder, Hx Panic Disorder, Hx Inpatient Treatment, Hx Community Mental Health Tx, Hx Bipolar Disorder, Hx Suicide Attempt, Hx of Violent Episodes Against Others, Other Psychiatric Issues/Disorders - SIB cutting Denies: Hx Eating Disorder, Hx Depression, Hx Post Traumatic Stress Disorder , Hx Schizophrenia, Hx Substance Abuse - Surgical History Surgery Procedure, Year, and Place: n/a - Immunization History Date of Tetanus Vaccine: up to date Infectious Disease History: No Infectious Disease History: Denies: Hx Clostridium Difficile, Hx Hepatitis, Hx Human Immunodeficiency Virus (HIV), Hx of Known/Suspected MRSA, Hx Shingles, Hx Tuberculosis, Hx Known/ Suspected VRE, Hx Known/Suspected VRSA, History Other Infectious Disease, Traveled Outside the [place] in Last 30 Days - Family History Known Family History: Positive: None - reviewed & noncontributory, Cardiac Disease, Hypertension, Other - Bipolar d/o, anxiety, ETOH abuse, ectopic pregnancies/miscarriages; Negative: Diabetes Family History: TWIN SISTER HAS LIVER DZ - Social History Occupation: Student Lives: Dormitory/Roommates Alcohol Use: None Hx Substance Use: Yes Substance Use Type: Reports: None Substance Use Comment - Amount & Last Used: occassional 1 month Hx Tobacco Use: Yes Smoking Status (MU): Light Every Day Tobacco Smoker Type: Cigarettes Amount Used/How Often: 1 sigs per day Length of Time of Smoking/Using Tobacco: one year Have You Smoked in the Last Year: Yes Review of Systems Positive: Chills. Negative: Fever, Skin Diaphoresis Negative: Drainage, Erythema Negative: Sore Throat, Ear Ache, Nasal Discharge Positive: Chest Pain. Negative: Palpitations Positive: Shortness Of Breath. Negative: Cough Negative: Abdominal Pain, Vomiting, Diarrhea, Nausea All Other Systems Reviewed And Are Negative: Yes Physical Exam - Summary Physical Exam Summary: GENERAL APPEARANCE: Well developed, well nourished, alert and cooperative, and appears to be in no acute distress. HEAD: Atraumatic. normocephalic. EYES: Conjunctiva clear. No discharge. EARS: External auditory canals and tympanic membranes clear, hearing grossly intact. NOSE: No nasal discharge. THROAT: Oral cavity and pharynx normal. No inflammation, swelling, exudate, or lesions. Teeth and gingiva in good general condition. NECK: Neck supple, non-tender without lymphadenopathy. CARDIAC: Normal S1 and S2. No S3, S4 or murmurs. Rhythm is regular. There is no peripheral edema, cyanosis or pallor. Extremities are warm and well perfused. Capillary refill is less than 2 seconds. LUNGS: Diminished bilaterally otherwise clear to auscultation without rales, rhonchi, wheezing or diminished breath sounds. ABDOMEN: Positive bowel sounds. Soft, nondistended, nontender. No guarding or rebound. No masses or hepatosplenomegally. MUSKULOSKELETAL: ROM intact to all extremities. No joint erythema or tenderness. Normal muscular development. Normal gait. EXTREMITIES: No significant deformity or joint abnormality. No edema. Peripheral pulses intact. NEUROLOGICAL: Strength and sensation symmetric and intact throughout. SKIN: Skin normal color, texture and turgor with no lesions or eruptions. Triage Information Reviewed: Yes Vital Signs On Initial Exam: Initial Vitals Temp Pulse Resp BP Pulse Ox 98.4 F 68 18 124/81 100 10/15/18 12:42 10/15/18 12:42 10/15/18 12:42 10/15/18 12:42 10/15/18 12:42 Vital Signs Reviewed: Yes Diagnostics - Vital Signs Vital Signs Temp Pulse Resp BP Pulse Ox 10/15/18 12:42 98.4 F 68 18 124/81 100 - Laboratory Lab Statement: Any lab studies that have been ordered have been reviewed, and results considered in the medical decision making process. - Radiology No standard instances Radiology Interpretation Completed By: Radiologist Summary of Radiographic Findings: Patient Name: PATTIE DAMON Medical Record#: [id number]. Ordering Physician: Dmitry Méndez NP Acct.#: [id number]. : 2000 Age: 18 Sex: F Location: EMERGENCY DEPARTMENT. Exam Date: 1254 ADM Status: PRE ER. Order Information: CHEST PA LAT 2 VWS. Accession Number: [id number]. CPT: 83993. Indication: Chest pain, shortness of breath. 2 views of the chest including dual energy PA views are reviewed. Comparison is made. previous exam dated July 29, 2017. No mediastinal shift is noted. Heart is of normal size and configuration. Lung patel are. clear. IMPRESSION: No active cardiopulmonary disease is noted. - EKG No standard instances Cardiac Rate: NL, Bradycardia EKG Rhythm: Sinus Bradycardia ST Segment: Normal Ectopy: None Summary of EKG Findings: Sinus bradycardia otherwise normal EKG Re-Evaluation - Re-Evaluation First Eval Re-Evaluation Time: 13:30 Change: Improved Comment: Post-nebulizer patient reporting symptoms much improved. States tightness has subsided and breathing much easier. Bilateral breath sounds clear with good air exchange. Disposition - Course Course Of Treatment: 18 year old female with history of anxiety and asthma presents with 3 day history of chest pain and difficulty breathing. States feels "like I cannot get a full breath". Describes pain as "tightness". States she occasionally feels a "thumping" in her chest. Associated with some chills but no known fever. States she uses her albuterol inhaler 2-3 times day. Last night needed to do a nebulizer treatment as the inhaler did not help. Has not used inhaler or nebulizer today and states she is almost out of her nebulizer solution. Denies nasal congestion, sinus pain/pressure, sore throat, dizziness, weakness, diaphoresis, abdominal pain, nausea, or vomiting. Afebrile. VSS. Nontoxic adult female in no acute distress. Exam unremarkable except for some decreased bilateral breath sounds. EKG SB without ectopy or ST changes. CXR no acute cardiopulmonary pathology. Patient responded well to albuterol neb treatment. Suspect that this is a mild exacerbation of her asthma. Recommend appropriate use of albuterol inhaler/nebulizer. Will provide her with a new prescription for her albuterol neb solution. Recommend follow up with PCP in 7 days. Warning symptoms reviewed. Patient verbalizes understanding and agrees with POC. - Differential Dx - Cardiopulmonary Differential Diagnoses - Cardiopulmonary: Acute Dyspnea, Asthma, Chest Wall Pain , Lower Resp Infection, Pleurisy, Pulmonary Embolism, Other - URI - Diagnoses Provider Diagnoses: Dyspnea Discharge - Sign-Out/Discharge Documenting (check all that apply): Patient Departure - Discharge Plan Condition: Stable Disposition: HOME Prescriptions: Albuterol 2.5MG/3ML (0.083%)* [Ventolin 2.5 MG/3 ML NEB.MEL*] 2.5 mg INH Q4H PRN #1 box PRN Reason: Shortness Of Breath Patient Education Materials: Asthma (ED) Referrals: Fuad Mccray MD [Primary Care Provider] - 7 Days () Additional Instructions: The chest x-ray and EKG performed in the emergency room today were normal. I suspect your symptoms may be an exacerbation of your asthma. Continue to use your albuterol inhaler 2 puffs every 4-6 hours or your albuterol nebulizer as needed for shortness of breath or wheezing. I have sent a new prescription for the albuterol nebulizer solution to the pharmacy. Take over the counter acetaminophen (Tylenol) or ibuprofen (Advil, Motrin) according to directions as needed for pain or fever. Follow up with your primary care provider in 7 days. Return to the emergency room if you have fever greater than 100.5 F despite taking acetaminophen or ibuprofen, have chest pain, feel as if your heart is racing or skipping beats, increased difficulty breathing, or have any worsening of symptoms. - Billing Disposition and Condition Condition: STABLE Disposition: Home
[2018-10-15] MEDS ORDERED: Albuterol 2.5 MG/3 ML NEB.SOL* (0.083%) INH ONE (13:07)
[2018-10-15 13:34] VITALS: BP 125/68
== END 2018-10-15 13:35 | disposition home or self-care (01) ==
LOC: ED 12:37
DX: R06.00 Dyspnea, unspecified (principal); F17.210 Nicotine dependence, cigarettes, uncomplicated; I10 Essential (primary) hypertension; J45.909 Unspecified asthma, uncomplicated; F41.9 Anxiety disorder, unspecified; F90.9 Attention-deficit hyperactivity disorder, unspecified type; E03.9 Hypothyroidism, unspecified; R00.1 Bradycardia, unspecified
CPT/HCPCS: 71046; 93005; 99281

== ENCOUNTER 2019-01-13 12:55 | Emergency (ER) | payer OTHER ==
--- NOTE | 2019-01-13 12:59 | UC ---
Respiratory Complaint HPI - HPI Summary HPI Summary: 18 yo female presents with chills, body aches, frontal headache, and dry cough for the last 3 days. She has not been taking anything OTC. She tells me that she has a history of asthma and has an albuterol inhaler, but has only used it once or twice during this illness. She is in the process of getting a nebulizer machine through her PCP. She has felt hot/cold, but has not taken her temperature. Mentions that she has many sick contacts at school with the flu and URIs. Denies sore throat, SOB, chest pain, abdominal pain, n/v, rash. - History of Current Complaint Stated Complaint: COUGH,CHILLS Time Seen by Provider: 01/13/19 12:59 Hx Obtained From: Patient Hx Last Menstrual Period: current Onset/Duration: Sudden Onset Timing: Constant Severity Initially: Moderate Severity Currently: Moderate Pain Intensity: 8 Pain Scale Used: 0-10 Numeric Character: Cough: Nonproductive - Allergies/Home Medications Allergies/Adverse Reactions: Allergies Allergy/AdvReac Type Severity Reaction Status Date / Time No Known Allergies Allergy Verified 01/13/19 13:02 PMH/Surg Hx/FS Hx/Imm Hx - Additional Past Medical History Additional PMH: Bipolar ADHD Anxiety Respiratory History: Asthma - Surgical History Surgical History: None Surgery Procedure, Year, and Place: n/a - Family History Known Family History: Positive: Cardiac Disease, Hypertension, Other - Bipolar d /o, anxiety, ETOH abuse, ectopic pregnancies/miscarriages; Negative: Diabetes Family History: TWIN SISTER HAS LIVER DZ - Social History Lives: With Family Alcohol Use: None Substance Use Type: None Substance Use Comment - Amount & Last Used: occassional 1 month Smoking Status (MU): Light Every Day Tobacco Smoker Type: Cigarettes Amount Used/How Often: 1 sigs per day Length of Time of Smoking/Using Tobacco: one year Have You Smoked in the Last Year: Yes - Immunization History Most Recent Influenza Vaccination: dec 2016 Most Recent Pneumonia Vaccination: n/a Review of Systems All Other Systems Reviewed And Are Negative: Yes Constitutional: Positive: Chills, Fatigue, Other - Body aches Skin: Positive: Negative Eyes: Positive: Negative ENT: Positive: Sore Throat, Sinus Pain/Tenderness Respiratory: Positive: Cough Cardiovascular: Positive: Negative Gastrointestinal: Positive: Negative Genitourinary: Positive: Negative Neurovascular: Positive: Negative Neurological: Positive: Negative Psychological: Positive: Negative Physical Exam - Summary Physical Exam Summary: GENERAL: NAD. WDWN. No pain distress. SKIN: No rashes, sores, lesions, or open wounds. HEENT: Head: AT/NC Eyes: EOM intact. Conjunctiva clear without inflammation or discharge. Ears: Hearing grossly normal. TMs intact, no bulging, erythema, or edema. Nose: Nasal mucosa moderately swollen and erythematous on left with yellow/clear discharge. TTP frontal sinus. Positive post nasal drip Throat: Posterior oropharynx without exudates, erythema, or tonsillar enlargement. Uvula midline. NECK: Supple. Nontender. No lymphadenopathy. CHEST: Scant wheezing throughout without crackles or coarse breath sounds. No accessory muscle use. Breathing comfortably and in no distress. CV: RRR. Without m/r/g. Pulses intact. NEURO: Alert. PSYCH: Age appropriate behavior. Triage Information Reviewed: Yes Vital Signs: Vital Signs: Temp Pulse Resp BP Pulse Ox 99.5 F 100 20 119/76 99 01/13/19 12:58 01/13/19 12:58 01/13/19 12:58 01/13/19 12:58 01/13/19 12:58 Laboratory Tests 01/13/19 01/13/19 13:11 13:18 POC Glucose (mg/dL) 137 H Influenza A (Rapid) Negative Influenza B (Rapid) Negative Vital Signs Reviewed: Yes Respiratory Course/Dx - Course Course Of Treatment: Suspect sinusitis with asthma exacerbation. She was given a duoneb treatment in the clinic and felt much better regarding her cough and wheezing. Will rx for tessalon, augmentin, and have her continue her albuterol inhaler as directed. F/u if not improving. - Differential Dx/Diagnosis Provider Diagnosis: Sinusitis, Asthma exacerbation Discharge - Sign-Out/Discharge Documenting (check all that apply): Patient Departure All imaging exams completed and their final reports reviewed: No Studies - Discharge Plan Condition: Stable Disposition: HOME Prescriptions: Amoxicillin/Clavulanate TAB* [Augmentin TAB 875*] 875 mg PO BID #14 tab Benzonatate CAP* [Tessalon 100 MG CAP*] 100 mg PO TID PRN #21 cap PRN Reason: Cough Patient Education Materials: Sinusitis (ED), Acute Bronchitis (ED) Referrals: [facility],. [Primary Care Provider] - Additional Instructions: If you develop a fever, shortness of breath, chest pain, new or worsening symptoms - please call your PCP or go to the ED. Please use your at home inhaler and nebulizer machine as directed for your asthma and cough - Billing Disposition and Condition Condition: STABLE Disposition: Home
[2019-01-13 13:02] VITALS: BP 119/76
[2019-01-13 13:30] LABS: Influenza A Molecular NEGATIVE (Negative); Influenza B Molecular NEGATIVE (Negative)
[2019-01-13] MEDS ORDERED: Albuterol/Ipratropium NEB.SOL* Albuterol 2.5 MG/Ipratropium 0.5 MG 3 ML INH ONE (13:37)
== END 2019-01-13 13:54 | disposition home or self-care (01) ==
LOC: UCEAST 12:55
DX: J32.9 Chronic sinusitis, unspecified (principal); J45.901 Unspecified asthma with (acute) exacerbation; F17.210 Nicotine dependence, cigarettes, uncomplicated
CPT/HCPCS: 99212; A9270-GY; G0463

== ENCOUNTER 2019-09-29 19:50 | Emergency (ER) | payer MEDICAID, OTHER ==
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
[2019-09-29] MEDS ORDERED: Ibuprofen TAB* 800 MG PO ONE (21:32)
[2019-09-29 23:27] VITALS: BP 113/87
== END 2019-09-29 22:20 | disposition home or self-care (01) ==
LOC: ED 19:50
DX: M25.561 Pain in right knee (principal); E03.9 Hypothyroidism, unspecified; I10 Essential (primary) hypertension; F41.9 Anxiety disorder, unspecified; F90.9 Attention-deficit hyperactivity disorder, unspecified type; F31.9 Bipolar disorder, unspecified; F17.210 Nicotine dependence, cigarettes, uncomplicated
CPT/HCPCS: 99282; A9270-GY

== ENCOUNTER 2019-11-01 17:30 | Emergency (ER) | payer OTHER ==
[2019-11-01] MEDS ORDERED: Albuterol/Ipratropium NEB.SOL* Albuterol 2.5 MG/Ipratropium 0.5 MG 3 ML INH ONE (17:45)
[2019-11-01] MEDS ORDERED: Dexamethasone TAB* 4 MG PO ONE (17:45)
--- NOTE | 2019-11-01 17:45 | ED ---
Shortness of Breath - HPI Summary HPI Summary: 19 year old F arriving via EMS complains of worsening shortness of breath since earlier today 11/01. Hx asthma. Has been admitted for asthma exacerbation. Hx COPD. Admits to smoking cigarettes but hasn't in 1 week. Patient states that earlier today, she tried breathing treatments with no relief. Then tried to nap but woke up diaphoretic and extremely short of breath. Tried breathing pump with no relief. No fever, cough, pain or swelling in bilateral calves. Reports sharp pain located at left sided rib cage. Symptoms aggravated by nothing. Symptoms alleviated by nothing. No breathing treatments given by EMS. Medications reviewed. Allergies noted. No hx DVT. No recent long distance travel or surgery. Not on oral contraception. Not on hormone therapy. No alcohol or recreational drugs. Scheduled to have surgery on her right lower extremity for ACL and right knee injuries. - History of Current Complaint Chief Complaint: EDShortnessOfBreath Time Seen by Provider: 11/01/19 17:39 Hx Obtained From: Patient Onset/Duration: Lasting Hours, Still Present Timing: Constant Current Severity: Severe - 910 Aggravating Factors: Nothing Alleviating Factors: Nothing - Allergy/Home Medications Allergies/Adverse Reactions: Allergies Allergy/AdvReac Type Severity Reaction Status Date / Time No Known Allergies Allergy Verified 11/01/19 18:12 PMH/Surg Hx/FS Hx/Imm Hx Endocrine/Hematology History: Reports: Hx Thyroid Disease - hypothyroid Denies: Hx Blood Disorders, Hx Diabetes Cardiovascular History: Reports: Hx Hypertension - diet controlled Respiratory History: Reports: Hx Asthma GI History: Reports: Hx Gall Bladder Disease - h/o stones as a child Denies: Hx Ulcer History: Denies: Hx Kidney Infection, Hx Kidney Stones Sensory History: Reports: Hx Contacts or Glasses - Pt reported use in the ED, unable to confirm upon admission. Denies: Hx Hearing Aid Opthamlomology History: Reports: Hx Contacts or Glasses - Pt reported use in the ED, unable to confirm upon admission. Neurological History: Reports: Hx Headaches, Hx Migraine Psychiatric History: Reports: Hx Anxiety, Hx Attention Deficit Hyperactivity Disorder, Hx Panic Disorder, Hx Inpatient Treatment, Hx Community Mental Health Tx, Hx Bipolar Disorder, Hx Suicide Attempt, Hx of Violent Episodes Against Others, Other Psychiatric Issues/Disorders - SIB cutting Denies: Hx Eating Disorder, Hx Depression, Hx Post Traumatic Stress Disorder , Hx Schizophrenia, Hx Substance Abuse - Surgical History Surgery Procedure, Year, and Place: n/a - Immunization History Date of Tetanus Vaccine: up to date Infectious Disease History: No Infectious Disease History: Denies: Hx Clostridium Difficile, Hx Hepatitis, Hx Human Immunodeficiency Virus (HIV), Hx of Known/Suspected MRSA, Hx Shingles, Hx Tuberculosis, Hx Known/ Suspected VRE, Hx Known/Suspected VRSA, History Other Infectious Disease, Traveled Outside the [place] in Last 30 Days - Family History Known Family History: Positive: None - reviewed & noncontributory, Cardiac Disease, Hypertension, Other - Bipolar d/o, anxiety, ETOH abuse, ectopic pregnancies/miscarriages; Negative: Diabetes Family History: TWIN SISTER HAS LIVER DZ - Social History Alcohol Use: None Hx Substance Use: Yes Substance Use Type: Reports: None Substance Use Comment - Amount & Last Used: occassional 1 month Hx Tobacco Use: Yes Smoking Status (MU): Light Every Day Tobacco Smoker Type: Cigarettes Amount Used/How Often: 1 sigs per day Length of Time of Smoking/Using Tobacco: one year Have You Smoked in the Last Year: Yes Review of Systems Positive: Skin Diaphoresis. Negative: Fever Positive: Shortness Of Breath. Negative: Cough Negative: Edema - bilateral calves, Other - pain in bilateral calvs All Other Systems Reviewed And Are Negative: Yes Physical Exam - Summary Physical Exam Summary: Constitutional: Well-developed, Well-nourished, Alert. (-) Distressed Skin: Warm, Dry HENT: Normocephalic; Atraumatic Eyes: Conjunctiva normal Neck: Musculoskeletal ROM normal neck. (-) JVD, (-) Stridor, (-) Tracheal deviation Cardio: Rhythm regular, rate normal, Heart sounds normal; Intact distal pulses; Radial pulses are 2+ and symmetric. (-) Murmur Pulmonary/Chest wall: Decreased air exchange in lung patel, no obvious wheezing , able to talk in full sentences Abd: Soft, (-) tenderness, (-) Distension, (-) Guarding, (-) Rebound Musculoskeletal: (-) Edema. No pain or swelling in bilateral calves Lymph: (-) Cervical adenopathy Neuro: Alert, Oriented x3 Psych: Mood and affect Normal Triage Information Reviewed: Yes Vital Signs On Initial Exam: Initial Vitals Temp Pulse Resp BP Pulse Ox 99.2 F 85 24 111/70 100 11/01/19 17:33 11/01/19 17:33 11/01/19 17:33 11/01/19 17:33 11/01/19 17:33 Vital Signs Reviewed: Yes Procedures - Sedation Patient Received Moderate/Deep Sedation with Procedure: No Diagnostics - Vital Signs Vital Signs Temp Pulse Resp BP Pulse Ox 11/01/19 17:33 99.2 F 85 24 111/70 100 - Laboratory Lab Statement: Any lab studies that have been ordered have been reviewed, and results considered in the medical decision making process. - Radiology CXR Radiology Interpretation Completed By: Radiologist Summary of Radiographic Findings: NO ACTIVE CARDIOPULMONARY DISEASE. ED PHYSICIAN HAS REVIEWED THIS REPORT. Re-Evaluation - Re-Evaluation First Eval Re-Evaluation Time: 18:23 Change: Improved Comment: patient feels much better after breathing treatment. offered another inhaler and declined Course/Dx - Course Course Of Treatment: Patient is here with shortness of breath in setting of known asthma. Patient ran out of her asthma inhaler. Patient had a chest x- ray showed no pneumonia. Patient was given 1 DuoNeb and a dose of Decadron with vast improvement in her symptoms. Patient is offered further treatment but declined. Patient is discharged with a second dose of Decadron and an inhaler prescription. - Diagnoses Provider Diagnoses: Asthma exacerbation, Shortness of breath Discharge ED - Sign-Out/Discharge Documenting (check all that apply): Patient Departure - Discharge Plan Condition: Stable Disposition: HOME Prescriptions: Albuterol HFA INHALER* [Ventolin HFA Inhaler*] 1 puff INH Q6H PRN #1 mdi PRN Reason: Wheezing Dexamethasone TAB* [Decadron TAB*] 12 mg PO DAILY #3 tab Referrals: Gina Arellano MD [Primary Care Provider] - 1 Day Additional Instructions: Take steroids tomorrow. Fill inhaler tonight so you can use. PLEASE RETURN TO EMERGENCY DEPARTMENT FOR ANY NEW OR WORSENING OR CONCERNING SYMPTOMS such as worsening trouble breathing or if you develop fever. Please follow up with your primary care physician. Please make all follow-ups in 1-3 days unless I advise you otherwise. - Billing Disposition and Condition Condition: STABLE Disposition: Home - Attestation Statements Document Initiated by Scribe: Yes Documenting Scribe: Beronica Higuera Provider For Whom Scribe is Documenting (Include Credential): Vincent Gonzales MD Scribe Attestation: I, Beronica Higuera, scribed for Vincent Gonzales MD on 11/01/19 at 1837. Scribe Documentation Reviewed: Yes Provider Attestation: The documentation as recorded by the scribe, Beronica Higuera accurately reflects the service I personally performed and the decisions made by me, Vincent Gonzales MD Status of Scribe Document: Viewed
[2019-11-01 18:37] VITALS: BP 120/72
== END 2019-11-01 18:37 | disposition home or self-care (01) ==
LOC: ED 17:30
DX: J45.901 Unspecified asthma with (acute) exacerbation (principal); E03.9 Hypothyroidism, unspecified; I10 Essential (primary) hypertension; F41.9 Anxiety disorder, unspecified; F90.9 Attention-deficit hyperactivity disorder, unspecified type; F31.9 Bipolar disorder, unspecified; F17.210 Nicotine dependence, cigarettes, uncomplicated
CPT/HCPCS: 71045; 99283; A9270-GY; J8540

== ENCOUNTER 2019-11-18 19:47 | Emergency (ER) | payer OTHER ==
[2019-11-18] MEDS ORDERED: Ibuprofen TAB* 600 MG PO ONE (20:18)
[2019-11-18] MEDS ORDERED: Penicillin VK TAB* 250 MG PO ONE (20:18)
--- NOTE | 2019-11-18 20:20 | ED ---
Throat Pain/Nasal Congestion - HPI Summary HPI Summary: 19-year-old female presents with dental pain for the past 2 days. She's also admits to sinus congestion and ear pain. Had a fever yesterday. she denies any abdominal pain nausea or vomiting. She's had a cough. She denies any chest pressure or shortness of breath. Has history of asthma. States shes is being followed up with ortho for her right knee pain as she has a potential ligament injury. Had an MRI today. she has surgery scheduled for this week. She states she needs a knee immobilizer to get her home as she's having right knee pain and does not have her brace with her - History of Current Complaint Chief Complaint: EDExtremityLower Time Seen by Provider: 11/18/19 20:03 - Allergies/Home Medications Allergies/Adverse Reactions: Allergies Allergy/AdvReac Type Severity Reaction Status Date / Time adhesive tape Allergy Rash Verified 11/18/19 19:54 PMH/Surg Hx/FS Hx/Imm Hx Endocrine/Hematology History: Reports: Hx Thyroid Disease - hypothyroid Denies: Hx Blood Disorders, Hx Diabetes Cardiovascular History: Reports: Hx Hypertension - diet controlled Denies: Hx Pacemaker/ICD Respiratory History: Reports: Hx Asthma Denies: Hx Chronic Obstructive Pulmonary Disease (COPD) GI History: Reports: Hx Gall Bladder Disease - h/o stones as a child Denies: Hx Ulcer History: Denies: Hx Kidney Infection, Hx Kidney Stones, Hx Renal Disease Sensory History: Reports: Hx Contacts or Glasses - Pt reported use in the ED, unable to confirm upon admission. Denies: Hx Hearing Aid Opthamlomology History: Reports: Hx Contacts or Glasses - Pt reported use in the ED, unable to confirm upon admission. Neurological History: Reports: Hx Headaches, Hx Migraine Psychiatric History: Reports: Hx Anxiety, Hx Attention Deficit Hyperactivity Disorder, Hx Panic Disorder - ANXIETY, Hx Inpatient Treatment, Hx Community Mental Health Tx, Hx Bipolar Disorder, Hx Suicide Attempt, Hx of Violent Episodes Against Others, Other Psychiatric Issues/Disorders - SIB cutting Denies: Hx Eating Disorder, Hx Depression, Hx Post Traumatic Stress Disorder , Hx Schizophrenia, Hx Substance Abuse - Surgical History Surgery Procedure, Year, and Place: DENIES - Immunization History Date of Tetanus Vaccine: up to date Date of Influenza Vaccine: 2018 Infectious Disease History: No Infectious Disease History: Denies: Hx Clostridium Difficile, Hx Hepatitis, Hx Human Immunodeficiency Virus (HIV), Hx of Known/Suspected MRSA, Hx Shingles, Hx Tuberculosis, Hx Known/ Suspected VRE, Hx Known/Suspected VRSA, History Other Infectious Disease, Traveled Outside the [place] in Last 30 Days - Family History Known Family History: Positive: None - reviewed & noncontributory, Cardiac Disease, Hypertension, Other - Bipolar d/o, anxiety, ETOH abuse, ectopic pregnancies/miscarriages; Negative: Diabetes Family History: TWIN SISTER HAS LIVER DZ - Social History Alcohol Use: None Hx Substance Use: Yes Substance Use Type: Reports: None Substance Use Comment - Amount & Last Used: occassional 1 month Hx Tobacco Use: Yes Smoking Status (MU): Light Every Day Tobacco Smoker Type: Cigarettes Amount Used/How Often: 1 sigs per day Length of Time of Smoking/Using Tobacco: one year Have You Smoked in the Last Year: Yes Review of Systems Positive: Fever Positive: Dental Pain, Ear Ache, Nasal Discharge Negative: Chest Pain Positive: Cough. Negative: Shortness Of Breath Positive: Myalgia - right knee pain All Other Systems Reviewed And Are Negative: Yes Physical Exam Triage Information Reviewed: Yes Vital Signs On Initial Exam: Initial Vitals Temp Pulse Resp BP Pulse Ox 99.6 F 88 16 115/75 99 11/18/19 19:50 11/18/19 19:50 11/18/19 19:50 11/18/19 19:50 11/18/19 19:50 Vital Signs Reviewed: Yes Appearance: Positive: Well-Appearing Skin: Positive: Warm, Dry Head/Face: Positive: Normal Head/Face Inspection Eyes: Positive: Normal, EOMI, DUDLEY, Conjunctiva Clear ENT: Positive: Pharynx normal, TMs normal - fluid behind TM Dental: Positive: Percussion Tenderness @ - 17. Negative: Abscess @ Respiratory/Lung Sounds: Positive: Clear to Auscultation, Breath Sounds Present Cardiovascular: Positive: Normal, RRR Musculoskeletal: Positive: Limited @ - right knee, Other - good pulses Neurological: Positive: Normal Psychiatric: Positive: Normal Procedures - Sedation Patient Received Moderate/Deep Sedation with Procedure: No Diagnostics - Vital Signs Vital Signs Temp Pulse Resp BP Pulse Ox 11/18/19 19:50 99.6 F 88 16 115/75 99 - Laboratory Lab Statement: Any lab studies that have been ordered have been reviewed, and results considered in the medical decision making process. EENT Course/Dx - Course Course Of Treatment: 19-year-old female presents with dental pain for the past 2 days. She's also admits to sinus congestion and ear pain. Had a fever yesterday. she denies any abdominal pain nausea or vomiting. She's had a cough. She denies any chest pressure or shortness of breath. Has history of asthma. States shes is being followed up with ortho for her right knee pain as she has a potential ligament injury. Had an MRI today. she has surgery scheduled for this week. She states she needs a knee immobilizer to get her home as she's having right knee pain and does not have her brace with her . On exam TMs normal. Pharynx normal. tooth tenderness on 17. No abscess noted. Lungs CTA. Discussed likely viral syndrome. Will place on penicillin for potential dental infection. Told follow up with ortho about knee pain as scheduled. told follow up with dentist about dental pain. Patient understands and agrees the plan. - Differential Diagnoses Differential Diagnoses: Dental Abscess, Dental Caries, Fractured Tooth, URI/ Bronchitis, Other - viral syndrome - Diagnoses Provider Diagnoses: Dental infection, Viral syndrome, Knee pain Discharge ED - Sign-Out/Discharge Documenting (check all that apply): Patient Departure - Discharge Plan Condition: Good Disposition: HOME Prescriptions: Ibuprofen TAB* [Motrin TAB* 600 MG] 600 mg PO Q6H PRN #20 tab PRN Reason: Pain - Moderate Penicillin VK TAB* [Penicillin VK 250 mg Tab*] 500 mg PO QID #27 tab Patient Education Materials: Toothache (ED) Forms: *Gen. Provider Communication Referrals: Gina Arellano MD [Primary Care Provider] - Additional Instructions: Take antibiotics: 4 times a day for 7 days, first dose given in ED Use ibuprofen or tyenlol every 6 hours Avoid hard, crunchy food until seen by dentist Follow up with dentist as soon as possible Return to ED if develop any new or worsening symptoms follow up with ortho as scheduled follow up with primary - Billing Disposition and Condition Condition: GOOD Disposition: Home
[2019-11-18 20:51] VITALS: BP 131/79
== END 2019-11-18 20:41 | disposition home or self-care (01) ==
LOC: ED 19:47
DX: K04.7 Periapical abscess without sinus (principal); B34.9 Viral infection, unspecified; M25.561 Pain in right knee; E03.9 Hypothyroidism, unspecified; I10 Essential (primary) hypertension; J45.909 Unspecified asthma, uncomplicated; F41.9 Anxiety disorder, unspecified; F90.9 Attention-deficit hyperactivity disorder, unspecified type; F17.210 Nicotine dependence, cigarettes, uncomplicated
CPT/HCPCS: 99283; A9270-GY

== ENCOUNTER 2019-11-26 16:24 | Emergency (ER) | payer OTHER ==
--- NOTE | 2019-11-26 16:32 | UC ---
Hand/Wrist HPI - HPI Summary HPI Summary: 19 yo female presents with RIGHT hand injury. She tells me that last night she punched a wall out of anger and frustration. Since that time has had pain in her right MCPs and has had difficulty making a fist. She wrapped the hand in an LEONILA wrap and came to today. She is right handed. - History Of Current Complaint Stated Complaint: HAND INJURY Time Seen by Provider: 11/26/19 16:29 Hx Obtained From: Patient Hx Last Menstrual Period: current Onset/Duration: Sudden Onset Severity Initially: Moderate Severity Currently: Moderate Pain Intensity: 8 Pain Scale Used: 0-10 Numeric - Allergies/Home Medications Allergies/Adverse Reactions: Allergies Allergy/AdvReac Type Severity Reaction Status Date / Time adhesive tape Allergy Rash Verified 11/26/19 16:44 PMH/Surg Hx/FS Hx/Imm Hx Psychological History: Anxiety, Bipolar Disorder - Surgical History Surgical History: None Surgery Procedure, Year, and Place: DENIES - Family History Known Family History: Positive: Cardiac Disease, Hypertension, Other - Bipolar d /o, anxiety, ETOH abuse, ectopic pregnancies/miscarriages; Negative: Diabetes Family History: TWIN SISTER HAS LIVER DZ - Social History Alcohol Use: None Substance Use Type: None Substance Use Comment - Amount & Last Used: occassional 1 month Smoking Status (MU): Light Every Day Tobacco Smoker Type: Cigarettes Amount Used/How Often: 1 sigs per day Length of Time of Smoking/Using Tobacco: one year Have You Smoked in the Last Year: Yes - Immunization History Most Recent Influenza Vaccination: dec 2016 Most Recent Pneumonia Vaccination: n/a Review of Systems All Other Systems Reviewed And Are Negative: No Constitutional: Positive: Negative Skin: Positive: Negative Respiratory: Positive: Negative Cardiovascular: Positive: Negative Neurovascular: Positive: Negative Musculoskeletal: Positive: Other: - Right hand pain Neurological: Positive: Negative Psychological: Positive: Negative Physical Exam - Summary Physical Exam Summary: GENERAL: NAD. WDWN. No pain distress. SKIN: No rashes, sores, lesions, or open wounds. CHEST: No accessory muscle use. Breathing comfortably and in no distress. CV: Pulses intact radial and ulnar. Cap refill <2seconds MSK: RIGHT HAND: Pain about entire hand and wrist without specific point tenderness. Unable/unwilling to move any MCP, PIP, or DIPs. TTP about right wrist. NTTP elbow. NEURO: Alert. Sensations intact hand and all fingers. PSYCH: Age appropriate behavior. Triage Information Reviewed: Yes Vital Signs: Vital Signs: Temp Pulse Resp BP Pulse Ox 98.7 F 76 16 128/69 100 11/26/19 16:29 11/26/19 16:29 11/26/19 16:29 11/26/19 16:29 11/26/19 16:29 Vital Signs Reviewed: Yes Procedures - Splinting 1 Hand-Made Type: orthoglass Splint: volar Pre-Proc Neuro Vasc Exam: normal Post-Proc Neuro Vasc Exam: normal Splint Applied by Provider: Eduin Granger - Radiology Hand XR Radiology Interpretation Completed By: Radiologist Summary of Radiographic Findings: IMPRESSION: No fracture of the right hand is noted. Hand/Wrist Course/Dx - Course Course Of Treatment: XR as above. Pain out of proportion to exam. Given degree of pain, splint applied and have her f/u with Orthopedics. She tells me that she has an appointment with her Orthopedic doctor tomorrow for her knee and will ask him about her wrist/hand tomorrow. Advised to RICE and take tylenol/ibuprofen as directed for discomfort - Differential Dx/Diagnosis Provider Diagnosis: Hand injury Discharge ED - Sign-Out/Discharge Documenting (check all that apply): Patient Departure All imaging exams completed and their final reports reviewed: Yes - Discharge Plan Condition: Stable Disposition: HOME Patient Education Materials: Hand Sprain (ED) Referrals: Gina Arellano MD [Primary Care Provider] - Additional Instructions: If you develop a fever, shortness of breath, chest pain, new or worsening symptoms - please call your PCP or go to the ED immediately. 1) Rest, Ice, and elevate your wrist and hand to reduce pain and swelling 2) Keep the splint clean, dry, and intact 3) Please keep your appointment with your Orthopedic doctor tomorrow for a recheck - Billing Disposition and Condition Condition: STABLE Disposition: Home
[2019-11-26 16:44] VITALS: BP 128/69
== END 2019-11-26 17:37 | disposition home or self-care (01) ==
LOC: UCEAST 16:24
DX: S69.91XA Unspecified injury of right wrist, hand and finger(s), initial encounter (principal); W22.09XA Striking against other stationary object, initial encounter; Y92.9 Unspecified place or not applicable; Z91.048 Other nonmedicinal substance allergy status; F17.210 Nicotine dependence, cigarettes, uncomplicated
CPT/HCPCS: 99212; G0463

== ENCOUNTER 2019-12-26 14:57 | Emergency (ER) | payer OTHER ==
[2019-12-26 16:05] LABS: ABS Eosinophils 0.1 10^3/ul (0-0.6); ABS Lymphocytes 1.5 10^3/ul (1.0-4.8); ABS Monocytes 0.2 10^3/ul (0-0.8); ABS Neutrophils 1.8 10^3/ul (1.5-7.7); Eosinophil % 3.1 %; Hematocrit 37 % (35-47); Hemoglobin 12.1 g/dL (12.0-16.0); Lymphocyte % 41.5 %; Mean Corpuscular HGB Conc 33 g/dL (31-36); Mean Corpuscular Hemoglobin 28 pg (27-31); Mean Corpuscular Volume 86 fL (80-97); Mean Platelet Volume 9.8 fL (7.4-10.4); Nucleated Red Blood Cells % 0.1; Platelet Count 171 10^3/uL (150-450); Red Blood Count 4.31 10^6 /uL (3.70-4.87); Red Cell Distribution Width 16 % (10-15); White Blood Count 3.7 10^3/uL (3.5-10.8)
[2019-12-26] MEDS ORDERED: Lidocaine 1% INJ* 10 MG/ML 30 ML SDV INJ ONE (16:18)
[2019-12-26] MEDS ORDERED: Bupivacaine 0.5% SDV PF* 30ML VIAL INJ ONE (16:19)
[2019-12-26] MEDS ORDERED: Bupivacaine 0.5%* 50 ML MDV VIAL INJ ONE (16:19)
--- NOTE | 2019-12-26 16:23 | ED ---
- HPI Summary HPI Summary: 19-year-old female presents to the emergency Department today with chief complaint of vaginal bleeding with a positive and dental pain. Patient states she is 3-1/2 weeks confirmed [facility]. Patient states 2 days ago she was urinating when "something dropped into the toilet". Patient endorses one pad every 2 hour vaginal bleeding since this occurred. Patient states she had a miscarriage. Patient also endorses 10 out of 10 left lower molar pain due to known dental infection and "cracked tooth". Surgical history and family history is Dr. kc. Patient otherwise feels well and denies fevers, chest pain, abdominal pain, pain with urination, rash. Patient denies recent alcohol use or recreational drug use. - History of Current Complaint Chief Complaint: EDOBProblems Stated Complaint: POSSIBLE MISCARRIAGE/DENTAL PAIN PER PT Time Seen by Provider: 12/26/19 15:30 Hx Obtained From: Patient Chief Complaint: Vaginal Bleeding Onset/Duration: Started Days Ago Timing: Constant Severity: Severe Current Severity: Severe Pain Intensity: 10 Location of Pain: Other: - dental Character: Sharp - All the Associated Signs and Symptoms: Positive: Vaginal Bleeding or Discharge - Assessment Hx Now: No - Additional Pertinent History Primary Care Physician: [id number] - Allergies/Home Medications Allergies/Adverse Reactions: Allergies Allergy/AdvReac Type Severity Reaction Status Date / Time adhesive tape Allergy Rash Verified 12/26/19 15:01 PMH/Surg Hx/FS Hx/Imm Hx Endocrine/Hematology History: Reports: Hx Thyroid Disease - hypothyroid Denies: Hx Blood Disorders, Hx Diabetes Cardiovascular History: Reports: Hx Hypertension - diet controlled Denies: Hx Pacemaker/ICD Respiratory History: Reports: Hx Asthma Denies: Hx Chronic Obstructive Pulmonary Disease (COPD) GI History: Reports: Hx Gall Bladder Disease - h/o stones as a child Denies: Hx Ulcer History: Denies: Hx Kidney Infection, Hx Kidney Stones, Hx Renal Disease Sensory History: Reports: Hx Contacts or Glasses - Pt reported use in the ED, unable to confirm upon admission. Denies: Hx Hearing Aid Opthamlomology History: Reports: Hx Contacts or Glasses - Pt reported use in the ED, unable to confirm upon admission. Neurological History: Reports: Hx Headaches, Hx Migraine Psychiatric History: Reports: Hx Anxiety, Hx Attention Deficit Hyperactivity Disorder, Hx Panic Disorder - ANXIETY, Hx Inpatient Treatment, Hx Community Mental Health Tx, Hx Bipolar Disorder, Hx Suicide Attempt, Hx of Violent Episodes Against Others, Other Psychiatric Issues/Disorders - SIB cutting Denies: Hx Eating Disorder, Hx Depression, Hx Post Traumatic Stress Disorder , Hx Schizophrenia, Hx Substance Abuse - Surgical History Surgery Procedure, Year, and Place: DENIES - Immunization History Date of Tetanus Vaccine: up to date Date of Influenza Vaccine: 2019 Infectious Disease History: No Infectious Disease History: Denies: Hx Clostridium Difficile, Hx Hepatitis, Hx Human Immunodeficiency Virus (HIV), Hx of Known/Suspected MRSA, Hx Shingles, Hx Tuberculosis, Hx Known/ Suspected VRE, Hx Known/Suspected VRSA, History Other Infectious Disease, Traveled Outside the [place] in Last 30 Days - Family History Known Family History: Positive: Cardiac Disease, Hypertension, Other - Bipolar d /o, anxiety, ETOH abuse, ectopic pregnancies/miscarriages; Negative: Diabetes Family History: TWIN SISTER HAS LIVER DZ - Social History Alcohol Use: None Hx Substance Use: Yes Substance Use Type: Reports: Marijuana Substance Use Comment - Amount & Last Used: occassional 1 month Hx Tobacco Use: Yes Smoking Status (MU): Light Every Day Tobacco Smoker Type: Cigarettes Amount Used/How Often: 1 sigs per day Length of Time of Smoking/Using Tobacco: one year Have You Smoked in the Last Year: Yes Review of Systems Constitutional: Negative Eyes: Negative Positive: Dental Pain. Negative: Sore Throat, Ear Ache, Nasal Discharge Cardiovascular: Negative Respiratory: Negative Gastrointestinal: Negative Positive: see HPI Musculoskeletal: Negative Skin: Negative Neurological/Mental Status: Negative Psychological: Normal All Other Systems Reviewed And Are Negative: Yes Physical Exam - Summary Physical Exam Summary: Patient is in no acute distress. Patient has no lesions of the bucca mucosa or lips. Dentition is in poor repair. There is no trismus or muffled voice. Uvula midline. Abdomen is nontender with palpation with normoactive bowel sounds. Abdomen soft. Pelvic exam chaperoned by KAELYN Downing Pelvic exam revealed no lesions of the external genitalia. There are no visible lacerations of the vaginal canal. There is no cervical motion tenderness. There is no discharge noted in the vaginal canal. There is noted blood coming from the cervix. - Physical Exam Triage Information Reviewed: Yes Vital Signs Reviewed: Yes Appearance: Positive: Well-Appearing, No Pain Distress, Well-Nourished Skin: Positive: Warm, Skin Color Reflects Adequate Perfusion Eyes: Positive: EOMI, DUDLEY ENT: Positive: Hearing grossly normal Respiratory/Lung Sounds: Positive: Clear to Auscultation, Breath Sounds Present Cardiovascular: Positive: RRR, S1, S2 Abdomen Description: Positive: Nontender, Soft Bowel Sounds: Positive: Present Pelvic Exam: External Exam Normal, No Cerv. Motion Tender, Active Bleeding, Blood Musculoskeletal: Positive: Strength/ROM Intact Neurological: Positive: Sensory/Motor Intact, Alert, Oriented to Person Place, Time, Facial Symmetry, Speech Normal Psychiatric: Positive: Normal, Affect/Mood Appropriate AVPU Assessment: Alert Procedures - Sedation Patient Received Moderate/Deep Sedation with Procedure: No Diagnostics - Vital Signs Vital Signs Temp Pulse Resp BP Pulse Ox 12/26/19 14:58 98.3 F 78 19 145/70 100 - Laboratory Lab Results: Lab Results 12/26/19 Range/Units 15:59 WBC 3.7 (3.5-10.8) 10^3/uL RBC 4.31 (3.70-4.87) 10^6 /uL Hgb 12.1 (12.0-16.0) g/dL Hct 37 (35-47) % MCV 86 (80-97) fL MCH 28 (27-31) pg MCHC 33 (31-36) g/dL RDW 16 H (10-15) % Plt Count 171 (150-450) 10^3/uL MPV 9.8 (7.4-10.4) fL Neut % (Auto) 48.7 % Lymph % (Auto) 41.5 % Chambers % (Auto) 6.0 % Eos % (Auto) 3.1 % Baso % (Auto) 0.7 % Absolute Neuts (auto) 1.8 (1.5-7.7) 10^3/ul Absolute Lymphs (auto) 1.5 (1.0-4.8) 10^3/ul Absolute Monos (auto) 0.2 (0-0.8) 10^3/ul Absolute Eos (auto) 0.1 (0-0.6) 10^3/ul Absolute Basos (auto) 0.0 (0-0.2) 10^3/ul Absolute Nucleated RBC 0.0 10^3/ul Nucleated RBC % 0.1 Result Diagrams: 12/26/19 15:59 12/26/19 15:59 Lab Statement: Any lab studies that have been ordered have been reviewed, and results considered in the medical decision making process. Course/Dx - Course Course Of Treatment: Patient was evaluated in the emergency department today chief complaint of vaginal bleeding and dental pain. Vitals noted. Laboratory studies were obtained which revealed no abnormalities. No leukocytosis, no anemia, no electrolyte abnormalities. Beta hCG negative for . Pelvic exam done revealed no acute findings including cervicitis however there was noted blood from the cervix. This was considered benign and likely menses related. There is no evidence of active peritonsillar abscess, dental abscess. Patient was given a dental block using 1% lidocaine without epinephrine and 0.5% Marcaine. Alveolar dental block was done on the left. Patient had significant reduction in pain after dental block. Patient discharged with outpatient follow-up with the PCP and with outpatient follow-up with dentist next week. Patient is currently on amoxicillin for dental carry. - Differential Diagnosis/HQI/PQRI: Incomplete , Missed , Spontaneous , Threatened , Ectopic , Placenta Abruption , Placenta Previa, Early , Vaginal Bleeding - Diagnoses Provider Diagnoses: Vaginal bleeding, Pain, dental Discharge ED - Sign-Out/Discharge Documenting (check all that apply): Patient Departure - Discharge Plan Condition: Stable Disposition: HOME Patient Education Materials: Dysfunctional Uterine Bleeding (ED), Toothache (ED ) Referrals: Gina Arellano MD [Primary Care Provider] - 3 Days Additional Instructions: Laboratory studies were done in the emergency department today which found no evidence of acute medical pathology requiring intervention at this time. There is no evidence of or miscarriage. It is likely your bleeding is due to a heavy period. Please follow-up with a dentist for your dental pain as tooth removal is the definitive treatment for your pain. you may also take ibuprofen 650 mg every 6 hours and ibuprofen 600 mg every 6 hours as needed for pain. Please return to the emergency department immediately if you develop any new or worsening symptoms including vaginal bleeding heavier than 1 pad per hour. - Billing Disposition and Condition Condition: STABLE Disposition: Home
[2019-12-26 16:26] LABS: Albumin 4.2 g/dL (3.2-5.2); CO2 Carbon Dioxide 25 mmol/L (22-32); Calcium 9.1 mg/dL (8.6-10.3); Chloride 108 mmol/L (101-111); Sodium 137 mmol/L (135-145)
[2019-12-26 16:28] LABS: HCG Pregnancy < 0.60 mIU/mL
[2019-12-26 16:32] LABS: ALT 10 U/L (7-52); Albumin/Globulin Ratio 1.6 (1-3); Alkaline Phosphatase 59 U/L (34-104); BUN/Creatinine Ratio 17.1 (8-20); Blood Urea Nitrogen 12 mg/dL (6-24); EGFR African American 127.8 (>60); EGFR Non-African American 105.6 (>60); Globulin 2.6 g/dL (2-4); Glucose 82 mg/dL (70-100); Total Protein 6.8 g/dL (6.4-8.9)
[2019-12-26 16:40] LABS: Anion Gap 4 mmol/L (2-11)
[2019-12-26 17:25] VITALS: BP 124/72
== END 2019-12-26 17:23 | disposition home or self-care (01) ==
LOC: ED 14:57
DX: N93.9 Abnormal uterine and vaginal bleeding, unspecified (principal); K08.89 Other specified disorders of teeth and supporting structures; E03.9 Hypothyroidism, unspecified; I10 Essential (primary) hypertension; J45.909 Unspecified asthma, uncomplicated; F41.9 Anxiety disorder, unspecified; F90.9 Attention-deficit hyperactivity disorder, unspecified type; F31.9 Bipolar disorder, unspecified; F17.210 Nicotine dependence, cigarettes, uncomplicated
CPT/HCPCS: 36415; 80053; 84702; 85025; 99282; J3490

== ENCOUNTER 2021-12-11 08:58 | Inpatient (IN) ==
[2021-12-11] MEDS ORDERED: Lactated Ringers 1000 ml BAG 1,000 ML IV ONE (11:04)
[2021-12-11] MEDS ORDERED: Buffered Lidocaine 1% SYRIN 1 ml INTRADERM ONE (11:04)
[2021-12-11] MEDS ORDERED: Lactated Ringers 1000 ml BAG 1,000 ML IV SCH (12:00)
[2021-12-11 13:36] LABS: Urine Benzodiazepine Screen None Detected (None Detect); Urine Cannabinoids Screen Presumptive Positive (None Detect); Urine Opiates Screen None Detected (None Detect)
[2021-12-11] MEDS ORDERED: LORazepam 2 mg VIAL 1 ml IV PUSH PRN (15:38)
[2021-12-11] MEDS ORDERED: Lorazepam PYXIS KEY PRN (15:38)
[2021-12-11] MEDS ORDERED: Oxytocin in LR 20 UNITS/1,000 ML BAG IVPB SCH (16:00)
[2021-12-11] MEDS ORDERED: Nalbuphine 10 MG/ML 1 ML VIAL IV PRN (21:35)
[2021-12-11] MEDS ORDERED: Promethazine INJ(RESTRICTED) 25 MG/ML 1 ml VIAL IV ONE (21:36)
[2021-12-12] MEDS ORDERED: Oxytocin 10 UNITS/ML 1 ML VIAL IM ONE (03:26)
[2021-12-12] MEDS ORDERED: Witch Hazel PAD JAR TOPICAL PRN (03:26)
[2021-12-12] MEDS ORDERED: Dibucaine 1% OINT 28.35 GM TUBE PR PRN (03:26)
[2021-12-12] MEDS ORDERED: Lactated Ringers 1000 ml BAG 1,000 ML IV SCH (04:00)
[2021-12-12] MEDS ORDERED: Simethicone SUSP ORALSYR 66.66 MG/ML PO SCH (17:30)
[2021-12-13 07:31] LABS: ABS Eosinophils 0.1 10^3/ul (0-0.6); ABS Lymphocytes 1.9 10^3/ul (1.0-4.8); ABS Monocytes 0.7 10^3/ul (0-0.8); ABS Neutrophils 6.5 10^3/ul (1.5-7.7); Eosinophil % 0.9 %; Hematocrit 28 % (35-47); Hemoglobin 9.2 g/dL (12.0-16.0); Mean Corpuscular HGB Conc 33 g/dL (31-36); Mean Corpuscular Hemoglobin 27 pg (27-31); Mean Corpuscular Volume 83 fL (80-97); Mean Platelet Volume 10.8 fL (7.4-10.4); Platelet Count 105 10^3/uL (150-450); Red Blood Count 3.39 10^6 /uL (3.70-4.87); Red Cell Distribution Width 16 % (10-15); White Blood Count 9.3 10^3/uL (3.5-10.8)
[2021-12-14 10:03] VITALS: BP 139/65
== END 2021-12-14 10:58 | disposition home or self-care (01) | DRG 560 ==
LOC: MCHOBOUT 08:58 → MCHOB 11:39
PROVIDERS: ADMIT Midwife; ATTEND Midwife